=== PATIENT | female | born 1985 | race Two or more races ===

== ENCOUNTER 2020-06-02 06:10 | Emergency (ER) | payer BC, OTHER ==
[~2020-06-02] VITALS: Ht 162.6 cm; Wt 61.2 kg
== END 2020-06-02 11:30 | disposition home or self-care (01) ==
LOC: ER 06:10 → EDBD 06:21 → ER 06:21
DX: K29.60 Other gastritis without bleeding (principal); R11.2 Nausea with vomiting, unspecified